=== PATIENT | female | born 1940 | race Two or more races ===

== ENCOUNTER 2018-03-11 08:54 | Outpatient (CLI) | payer OTHER | END 2018-03-11 08:57 | disposition home or self-care (01) | LOC: SONOGRAMA 08:54 | DX: E04.1 Nontoxic single thyroid nodule (principal) ==

== ENCOUNTER 2018-07-13 10:22 | Outpatient (CLI) | payer OTHER | END 2018-07-13 10:26 | disposition home or self-care (01) | LOC: SONOGRAMA 10:22 | DX: E04.1 Nontoxic single thyroid nodule (principal) ==

== ENCOUNTER 2023-08-07 08:59 | Outpatient (CLI) | payer OTHER | END 2023-08-07 09:05 | disposition home or self-care (01) | LOC: RX STUDY 08:59 | PROVIDERS: ATTEND Otolaryngology Otolaryngology/Facial Plastic Surgery | DX: R13.10 Dysphagia, unspecified (principal); H90.3 Sensorineural hearing loss, bilateral ==